=== PATIENT | male | born 1955 | race American Indian/Alaskan Native ===

== ENCOUNTER 2020-01-04 21:42 | Emergency (ER) | payer MEDICARE ==
[2020-01-04] MEDS ORDERED: ACETAMINOPHEN 500 MG TAB PO ONE (22:22)
--- NOTE | 2020-01-04 22:22 | Emergency Department Report ---
ED Lower Extremity HPI - General Chief Complaint: Pain General Stated Complaint: RT LEG PAIN Time Seen by Provider: 01/04/20 22:13 Source: patient, EMS Mode of arrival: Stretcher Limitations: Physical Limitation - History of Present Illness Initial Comments: CC: "My knees hurt." HPI: This is a 64 yo male with hx of CHF, DM, HTN, ESRD on HD MWF, Right BKA who presents witih bilateral knee pain for 2 weeks. He had fall at least one week ago. He was picked up from local hotel. He is looking for a local [facility] for senior living. He normally lives with his sister in [place]. He stated that his family members "put me out". He last HD session occurred today at [facility]. Complaint: knee injury -: week(s) (1) Injury: Knee: Right, Left Type of Injury: blunt Place: home Severity: moderate Improves With: rest Worsens With: weight bearing Context: fall Associated Symptoms: able to partially bear weight - Related Data Previous Rx's Medication Instructions Recorded Last Taken Type HYDROcodone/APAP 5-325 [[place] 1 each PO Q6HR PRN #10 tablet 01/04/20 Unknown Rx 5/325] Allergies Allergy/AdvReac Type Severity Reaction Status Date / Time No Known Allergies Allergy Unverified 01/04/20 22:15 ED Review of Systems ROS: Stated complaint: RT LEG PAIN Other details as noted in HPI Comment: All other systems reviewed and negative Constitutional: denies: fever, malaise Respiratory: denies: cough, shortness of breath Cardiovascular: denies: chest pain Gastrointestinal: denies: abdominal pain, nausea, vomiting Musculoskeletal: myalgia ED Past Medical Hx - Past Medical History Previous Medical History?: Yes Hx Hypertension: Yes Hx Congestive Heart Failure: Yes Hx Diabetes: Yes Hx Kidney Stones: Yes (ESRD ON DIALYSIS M-W-F) - Surgical History Past Surgical History?: Yes Additional Surgical History: RIGHT KNEE AMPUTAE, LEFT FISTULA - Social History Smoking Status: Never Smoker Substance Use Type: None - Medications Home Medications: Home Medications Medication Instructions Recorded Confirmed Last Taken Type HYDROcodone/APAP 5-325 [[place] 1 each PO Q6HR PRN #10 tablet 01/04/20 Unknown Rx 5/325] ED Physical Exam - General Limitations: Physical Limitation General appearance: alert, in no apparent distress, other (talkative, appears comfortable, NAD) - Head Head exam: Present: atraumatic, normocephalic - Eye Eye exam: Present: normal appearance - ENT ENT exam: Present: mucous membranes moist - Neck Neck exam: Present: normal inspection, full ROM - Respiratory Respiratory exam: Present: normal lung sounds bilaterally. Absent: respiratory distress, wheezes, rales, rhonchi - Cardiovascular Cardiovascular Exam: Present: regular rate, normal rhythm, normal heart sounds. Absent: systolic murmur, diastolic murmur, rubs, gallop - GI/Abdominal GI/Abdominal exam: Present: soft, normal bowel sounds. Absent: distended, tenderness, guarding, rebound - Rectal Rectal exam: Present: deferred - Extremities Exam Extremities exam: Present: normal inspection - Expanded Lower Extremity Exam Left Hip exam: Present: normal inspection, full ROM Upper Leg exam: Present: normal inspection, full ROM Knee exam: Present: normal inspection, full ROM. Absent: tenderness, swelling, abrasion, laceration Lower Leg exam: Present: normal inspection, full ROM. Absent: tenderness, swelling Ankle exam: Present: normal inspection, full ROM Foot/Toe exam: Present: normal inspection, full ROM Neuro vascular tendon exam: Present: no vascular compromise Right Hip exam: Present: normal inspection, full ROM Upper Leg exam: Present: normal inspection, full ROM Knee exam: Present: normal inspection, full ROM. Absent: tenderness, swelling Lower Leg exam: Present: normal inspection (Prosthesis in place, intact skin right BKA) - Back Exam Back exam: Present: normal inspection - Neurological Exam Neurological exam: Present: alert, oriented X3 - Psychiatric Psychiatric exam: Present: normal affect, normal mood - Skin Skin exam: Present: warm, dry, intact, normal color. Absent: rash ED Course Vital Signs 01/04/20 01/04/20 01/04/20 22:05 22:15 22:31 Temperature 98.2 F Pulse Rate 75 75 75 Respiratory 21 16 17 Rate Blood Pressure 195/82 195/82 181/75 Blood Pressure 195/82 [Left] O2 Sat by Pulse 96 96 96 Oximetry 01/04/20 01/04/20 01/04/20 22:35 23:00 23:15 Temperature Pulse Rate 76 73 Respiratory 18 21 16 Rate Blood Pressure 162/111 162/111 Blood Pressure [Left] O2 Sat by Pulse 95 93 Oximetry ED Lower Extremity MDM - Radiology Data Radiology results: report reviewed, image reviewed RIGHT KNEE AP AND LATERAL VIEWS INDICATION / CLINICAL INFORMATION: knee pain fall. COMPARISON: None available. FINDINGS: BONES/JOINT(S): No acute fracture or subluxation. No significant degenerative changes. Previous [id number] amputation. No significant joint effusion. SOFT TISSUES: No significant abnormality. ADDITIONAL FINDINGS: None. - Medical Decision Making Mr. Briones presents with bilateral knee pain for 2 weeks. Due to the pain he has had 1-2 falls. Differential diagnosis include DJD, gout. No evidence of fracture or subluxation. There is evidence of DJD on radiographs. Patient was given crutches for comfort. He does have family members in [place]. Patient has asymptomatic hypertension. He admits to being without medication for several days. The medications are currently at his sister's home where he normally resides. He is discharged to self-care. He states that he is able to return [facility] the [facility]. Vital Signs - 24 hr 01/04/20 01/04/20 01/04/20 22:05 22:15 22:31 Temperature 98.2 F Pulse Rate 75 75 75 Respiratory 21 16 17 Rate Blood Pressure 195/82 195/82 181/75 Blood Pressure 195/82 [Left] O2 Sat by Pulse 96 96 96 Oximetry 01/04/20 01/04/20 01/04/20 22:35 23:00 23:15 Temperature Pulse Rate 76 73 Respiratory 18 21 16 Rate Blood Pressure 162/111 162/111 Blood Pressure [Left] O2 Sat by Pulse 95 93 Oximetry Critical care attestation.: If time is entered above; I have spent that time in minutes in the direct care of this critically ill patient, excluding procedure time. ED Disposition Clinical Impression: Bilateral knee pain Disposition: - TO HOME OR SELFCARE Is pt being admited?: No Does the pt Need Aspirin: No Condition: Stable Instructions: Knee Pain (ED) Prescriptions: HYDROcodone/APAP 5-325 [[place] 5/325] 1 each PO Q6HR PRN #10 tablet PRN Reason: Pain Referrals: FRANTZ SALDANA MD [Staff Physician] - 3-5 Days
--- NOTE | 2020-01-04 22:38 | XRay Report ---
RIGHT KNEE AP AND LATERAL VIEWS INDICATION / CLINICAL INFORMATION: knee pain fall. COMPARISON: None available. FINDINGS: BONES/JOINT(S): No acute fracture or subluxation. No significant degenerative changes. Previous below -the-knee amputation. No significant joint effusion. SOFT TISSUES: No significant abnormality. ADDITIONAL FINDINGS: None. Signer Name: Colton Maher MD Signed: 01/04/2020 10:34 PM Workstation Name: [id number]
[2020-01-04 23:33] VITALS: BP 162/111
== END 2020-01-05 01:05 | disposition home or self-care (01) ==
LOC: ED 21:42
DX: M25.561 Pain in right knee (principal); M25.562 Pain in left knee; E11.22 Type 2 diabetes mellitus with diabetic chronic kidney disease; I13.2 Hypertensive heart and chronic kidney disease with heart failure and with stage 5 chronic kidney disease, or end stage renal disease; I50.9 Heart failure, unspecified; N18.6 End stage renal disease; Z99.2 Dependence on renal dialysis; Z79.4 Long term (current) use of insulin